=== PATIENT | male | born 1975 | race Caucasian/White ===

== ENCOUNTER 2017-09-17 00:47 | Emergency (ER) | payer OTHER, MEDICAID ==
[~2017-09-17] VITALS: Ht 172.7 cm; Wt 102.0 kg
[2017-09-17 00:52] VITALS: Ht 172.7 cm; Wt 102.0 kg
[2017-09-17 01:30] VITALS: BP 138/86
== END 2017-09-17 01:30 | disposition home or self-care (01) ==
LOC: ED 00:47
DX: J02.9 Acute pharyngitis, unspecified (principal); M79.1 Myalgia